=== PATIENT | female | born 1950 | race Hispanic/Latino ===

== ENCOUNTER → 2023-09-01 | Outpatient (CLI) | payer OTHER, MEDICARE ==
[~2023-09-01] MED LIST: IOHEXOL-350 75 ML VIAL IV ONE
== END | disposition home or self-care (01) ==
LOC: RAH 08:06
PROVIDERS: ATTEND Family Medicine
DX: M47.812 Spondylosis without myelopathy or radiculopathy, cervical region (principal); M48.02 Spinal stenosis, cervical region; R93.89 Abnormal findings on diagnostic imaging of other specified body structures
CPT/HCPCS: 70492; Q9967